=== PATIENT | female | born 1975 | race Caucasian/White ===

== ENCOUNTER → 2017-01-07 | Day surgery (SDC) | payer BC ==
[~2017-01-07] MED LIST: ACETAMINOPHEN PO; FLEXERIL10 MG PO; VOLTAREN75 MG PO
--- NOTE | ~2017-01-07 | OR ---
Unit #: [id number] #: [id number] Patient: BETZAIDA LLOYD [id number] [address] [address] [id number] O MR#: [id number] NAME: BETZAIDA LLOYD. ROOM: Date of Procedure: 01/07/2017 Admission Date: 01/07/2017 Surgeon: Arash Gutierrez M.D. : 1975 Attending Physician: Francisco Javier Gutierrez Primary Care Physician: Generic Doctor Not In [facility] OPERATIVE NOTE PROCEDURE PERFORMED Lumbar epidural steroid injection under x-ray guided needle placement with provider administered conscious sedation. PREOPERATIVE DIAGNOSES 1. Acute lumbar radiculitis. 2. Spinal stenosis, lumbosacral spine. 3. Herniated disk, L4-L5. 4. Degenerative joint disease, lumbosacral spine. 5. Degenerative disk disease, lumbosacral spine. INDICATIONS FOR PROCEDURE The patient presents today status post 2 previous lumbar approach epidural steroid injections for an acute left-sided lumbar radiculitis, which had failed to respond to conservative therapy. She states she has done very well in the ensuing 3 months since her last injection; however, she has begun to develop over the course of the past month a return of her pain and is advancing in a crescendo pattern, and failing to respond to conservative measures. After discussing risks and benefits of proceeding today with lumbar approach epidural steroid injection utilizing a dual needle access technique as well as return to this clinic on 04/29/2017 for followup, the patient agreed this would be the appropriate course of action. DESCRIPTION OF PROCEDURE She was then taken to the operating room, where she was prepped and draped in sterile manner. Standard monitors were applied. She was sedated with 2 mg of IV Versed initially and required additional 2 mg of IV Versed throughout the duration of the procedure. Lumbar epidural space was accessed at the L5-S1 and L3-L4 levels using loss of resistance technique and x-ray guidance. Needle placement was confirmed with the injection of 2 mL of Omnipaque at each level. There was good superior and inferior flow in both of these injected levels. Following successful needle placement confirmation which required an x-ray time of 12 seconds, the patient received an injectate containing 4 mL normal saline and 40 mg of methylprednisolone at each site for total injectate volume today of 8 mL of normal saline and 80 mg of methylprednisolone. She tolerated this procedure well. She was discharged home with followup instructions, which include return dates as described above. Dictated by... Arash Gutierrez M.D. Unit #: [id number] #: [id number] Patient: BETZAIDA LLOYD JRG/modl TD: 01/08/2017 02:45 JOB #: [id number] CC: Jg Parker M.D. SUR[facility] CENTER OPERATIVE NOTE Page 1 of 1 X Francisco Javier Gutierrez MD X PROCEDURE OPERATIVE NOTE
== END | disposition home or self-care (01) ==
LOC: CCSC 08:16
DX: M51.16 Intervertebral disc disorders with radiculopathy, lumbar region (principal); M48.07 Spinal stenosis, lumbosacral region; F17.210 Nicotine dependence, cigarettes, uncomplicated; Z98.51 Tubal ligation status; Z98.890 Other specified postprocedural states
CPT/HCPCS: J1040; J2250

== ENCOUNTER → 2017-04-29 | Day surgery (SDC) | payer BC ==
--- NOTE | ~2017-04-29 | OR ---
Unit #: [id number] #: [id number] Patient: BETZAIDA LLOYD [id number] [address] [place], [place] [address] [id number] O MR#: [id number] NAME: BETZAIDA LLOYD. ROOM: Date of Procedure: 04/29/2017 Admission Date: 04/29/2017 Surgeon: Arash Gutierrez M.D. : 1975 Attending Physician: Arash Gutierrez M.D. Referring Physician: Arash Gutierrez M.D. SURGERY CENTER OPERATIVE NOTE PROCEDURE PERFORMED Lumbar epidural steroid injection under x-ray guided needle placement with provider administered conscious sedation. PREOPERATIVE DIAGNOSES 1. Acute lumbar radiculitis. 2. Spinal stenosis, lumbosacral spine. 3. Herniated disk, L4-L5. 4. Degenerative disk disease. 5. Degenerative joint disease. INDICATIONS FOR PROCEDURE The patient presents today with longstanding history of chronic lumbar radicular pain secondary to her underlying degenerative processes. She has been fairly well managed medically over the course of her disease since developing her original acute radiculitis approximately 12 to 18 months ago. She has been successfully treated in the past with epidural steroid injections and presents today having had an exacerbation, which is broken through her ongoing conservative treatment. Her pain is consistent with past episodes. Her pain is consistent with her x-ray findings of herniated L4-L5 disk and her past relief has been approximately 80% to 100% for 10 to 12 weeks. After discussing risks and benefits of proceeding today with a lumbar approach epidural steroid injection, the patient agreed this would be the appropriate course of action. DESCRIPTION OF PROCEDURE She was then taken to the operating room, where she was prepped and draped in a sterile manner. Standard monitors were applied. She was sedated with 2 mg of IV Versed and lumbar epidural space accessed at the L4-L5 level using loss of resistance technique and x-ray guidance. Needle placement was confirmed with injection of 2 mL of Omnipaque. There was good superior and inferior flow at this L4-L5 level needle placement. Following successful needle placement confirmation, the patient received an injectate containing 4 mL normal saline and 80 mg of methylprednisolone. She tolerated this procedure well. She was discharged home with followup instructions, which include return to this clinic as early as 08/05/2017. Dictated by... Arash Gutierrez M.D. JRG/modl Unit #: [id number] #: [id number] Patient: BETZAIDA LLOYD TD: 04/29/2017 19:12 JOB #: [id number] CC: Jg Parker M.D. SUR[facility] CENTER OPERATIVE NOTE Page 1 of 1 X Francisco Javier Gutierrez MD X PROCEDURE OPERATIVE NOTE
== END | disposition home or self-care (01) ==
LOC: CCSC 08:00
DX: M51.16 Intervertebral disc disorders with radiculopathy, lumbar region (principal); M48.07 Spinal stenosis, lumbosacral region; M19.90 Unspecified osteoarthritis, unspecified site; F17.200 Nicotine dependence, unspecified, uncomplicated
CPT/HCPCS: J1040; J2250